=== PATIENT | female | born 1965 | race Caucasian/White ===

== ENCOUNTER 2017-04-23 19:34 | Emergency (ER) | payer BC ==
[2017-04-23] MEDS ORDERED: predniSONE 20 MG Tab PO ONE (19:35)
[2017-04-23] MEDS ORDERED: Acetaminophen/HYDROcodone 325-10 MG Tab PO ONE (19:35)
[2017-04-23] MEDS ORDERED: Cyclobenzaprine 10 MG Tab PO ONE (19:35)
[2017-04-23] MEDS ORDERED: Ketorolac 30 MG/ML SDV IM ONE (21:24)
--- NOTE | 2017-04-23 21:28 | EDM.PDOC ---
ED HPI GENERAL MEDICAL PROBLEM - General Chief Complaint: Back Pain or Injury Stated Complaint: SEVERE BACK PAINS, [id number] Time Seen by Provider: 04/23/17 20:00 Source of Information: Reports: Patient History Limitations: Reports: No Limitations - History of Present Illness INITIAL COMMENTS - FREE TEXT/NARRATIVE: c/o low back pain and buttock radiating down legs at times. 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 Had trial of stimulator but did not tolerate. Currently follows at [facility], notes she had not attempted to see PCP until this afternoon and was unable to get in. Has continued to work. . Unable to sleep with pain. Has been using tylenol and melatonin. Lower Back Pain Score (Numeric/FACES): 7 - Related Data Allergies Allergy/AdvReac Type Severity Reaction Status Date / Time Penicillins Allergy Cannot Verified 04/23/17 19:59 Remember Home Meds: Home Meds Hydrochlorothiazide/Lisinopril [Lisinopril-HCTZ 20-12.5 MG] 1 tab PO DAILY 10/28 [History] Multivitamin with Minerals [One Daily] 1 each PO DAILY 10/28/13 [History] Ascorbic Acid [Vitamin C] 1,000 mg PO DAILY 04/23/17 [History] Cholecalciferol (Vitamin D3) [Vitamin D] 5,000 unit PO DAILY 04/23/17 [History] Simvastatin [Zocor] 20 mg PO BEDTIME 04/23/17 [History] Past Medical History Cardiovascular History: Reports: High Cholesterol, Hypertension Musculoskeletal History: Reports: Back Pain, Chronic - Past Surgical History Neurological Surgical History: Reports: Lumbar Spine Musculoskeletal Surgical History: Reports: Shoulder Surgery, Other (See Below) Other Musculoskeletal Surgeries/Procedures:: back surgery x3 Social & Family History - Tobacco Use Smoking Status *Q: Current Every Day Smoker Years of Tobacco use: 35 Packs/Tins Daily: 0.5 Second Hand Smoke Exposure: Yes - Recreational Drug Use Recreational Drug Use: No - Living Situation & Occupation Living situation: Reports: , with Family Occupation: Employed ED ROS GENERAL - Review of Systems Review Of Systems: See Below Constitutional: Reports: No Symptoms HEENT: Reports: No Symptoms Respiratory: Reports: No Symptoms GI/Abdominal: Reports: No Symptoms Musculoskeletal: Reports: Back Pain, Leg Pain Skin: Reports: No Symptoms Neurological: Reports: No Symptoms. Denies: Paresthesia, Weakness, Gait Disturbance ED EXAM,LOWER BACK PAIN/INJURY - Physical Exam Exam: See Below Exam Limited By: No Limitations General Appearance: Alert, Mild Distress Eye Exam: Bilateral Eye: EOMI Ears: Normal External Exam Nose: Normal Inspection Throat/Mouth: Normal Inspection Head: Atraumatic, Normocephalic Neck: Normal Inspection, Supple Respiratory/Chest: No Respiratory Distress, Lungs Clear, Normal Breath Sounds Cardiovascular: Normal Peripheral Pulses, Regular Rate, Rhythm GI/Abdominal: Normal Bowel Sounds, Non-Tender Back Exam: Other (sacral). No: Paraspinal Tenderness, Vertebral Tenderness Extremities: Normal Inspection, Normal Range of Motion Neurological: Alert, Normal Mood/Affect, Normal Dorsiflexion, Normal Plantar Flexion, Oriented x 3, Straight Leg Raise (L). No: Abnormal Sensation, Saddle Anesthesia, Difficulty Walking Psychiatric: Normal Affect Skin Exam: Warm, Dry, Intact, Normal Color Course - Vital Signs Last Recorded V/S: Last Vital Signs Temp 97.6 F 04/23/17 19:54 Pulse 89 04/23/17 21:43 Resp 18 04/23/17 21:43 BP 124/62 04/23/17 21:43 Pulse Ox 100 04/23/17 21:43 - Orders/Labs/Meds Meds: Medications Discontinued Medications Generic Name Dose Route Start Last Admin Trade Name Angie PRN Reason Stop Dose Admin Hydrocodone Bitart/Acetaminophen Confirm 04/23/17 21:31 04/23/17 21:46 [place] 325-10 Mg Administered 04/23/17 21:32 Not Given Dose 2 tab .ROUTE .STK-MED ONE Cyclobenzaprine HCl Confirm 04/23/17 21:32 04/23/17 21:45 Flexeril Administered 04/23/17 21:33 Not Given Dose 10 mg .ROUTE .STK-MED ONE Ketorolac Tromethamine 30 mg 04/23/17 21:24 04/23/17 21:27 Toradol IM 04/23/17 21:25 30 mg ONETIME ONE Administration Prednisone Confirm 04/23/17 21:31 04/23/17 21:46 Prednisone Administered 04/23/17 21:32 Not Given Dose 40 mg .ROUTE .STK-MED ONE Departure - Departure Time of Disposition: 21:24 Disposition: Home, Self-Care 01 Condition: Good Clinical Impression: Low back pain - Discharge Information Instructions: Back Pain, Adult, [id number] Referrals: PCP,None [Ordering Only Provider] - Forms: ED Department Discharge Additional Instructions: follow up with primary care early next week prednisone 40mg x 3days then 20mg x5 days flexeril 10mg one half tablet every 8 hours as needed #1 Hydrocodone 10/325 one every 6 hours as needed #2
[2017-04-23] MEDS ORDERED: Acetaminophen/HYDROcodone 325-10 MG Tab ONE (21:31)
[2017-04-23] MEDS ORDERED: predniSONE 20 MG Tab ONE (21:31)
[2017-04-23] MEDS ORDERED: Cyclobenzaprine 10 MG Tab ONE (21:32)
== END 2017-04-23 21:45 | disposition home or self-care (01) ==
LOC: DL.ED 19:34
DX: M54.5 Low back pain (principal); F17.210 Nicotine dependence, cigarettes, uncomplicated; I10 Essential (primary) hypertension; E78.00 Pure hypercholesterolemia, unspecified; Z88.0 Allergy status to penicillin
CPT/HCPCS: 96372; 99283; J1885; A9270-GY